=== PATIENT | male | born 1985 | race Hispanic/Latino ===

== ENCOUNTER 2018-09-26 23:08 | Emergency (ER) | payer SELFPAY ==
[2018-09-26] MEDS ORDERED: IBUPROFEN 400 MG TAB ONE (23:54)
--- NOTE | 2018-09-27 01:42 | EDPHYS ---
Physician Documentation [facility] Name: Ab Andrew Age: 33 yrs Sex: Male : 1985 Arrival Date: 09/26/2018 Time: 23:24 Bed 12 Private MD: ED Physician Javy Alvarado HPI: 09/27 01:27 This 33 yrs old Male presents to ER via Ambulatory with complaints of Fever, jmm Cough. 01:27 The patient reports fever. Onset: The symptoms/episode began/occurred gradually, 1 jmm day(s) ago. Modifying factors: there are no obvious modifying factors. Associated signs and symptoms: Pertinent positives: cough, sinus congestion. This is a 33 year old male with a history of htn, chronic bronchitis that presents to the ED with complaints of cough, congestion, fever, beginning yesterday. Denies vomiting, denies diarrhea. . Historical: - Allergies: 09/26 23:37 No Known Allergies; aa1 - Home Meds: 23:37 Metoprolol Tartrate Oral [Active]; amlodipine oral [Active]; Albuterol Inhl [Active]; aa1 - PMHx: 23:37 Hypertension; chronic bronchitis; aa1 - PSHx: 23:37 None; aa1 - Immunization history:: Flu vaccine is not up to date. - Social history:: Smoking status: Patient/guardian denies using tobacco. - Ebola Screening: : Patient denies exposure to infectious person Patient denies travel to an Ebola-affected area in the 21 days before illness onset. ROS: 09/27 01:27 Eyes: Negative for injury, pain, redness, and discharge, Cardiovascular: Negative for jmm chest pain, palpitations, and edema. Back: Negative for injury and pain, MS/Extremity: Negative for injury and deformity, Skin: Negative for injury, rash, and discoloration. Constitutional: Positive for body aches, fever. Respiratory: Positive for cough. Abdomen/GI: Negative for nausea and vomiting, diarrhea. All other systems are negative. Exam: 01:27 Constitutional: This is a well developed, well nourished patient who is awake, alert, jmm and in no acute distress. Head/Face: atraumatic. Eyes: EOMI, no conjunctival erythema appreciated ENT: Moist Mucus Membranes Neck: Trachea midline, Supple Chest/axilla: Normal chest wall appearance and motion. Cardiovascular: Regular rate and rhythm. No edema appreciated Respiratory: Normal respirations, no respiratory distress appreciated Abdomen/GI: Non distended, soft Back: Normal ROM Skin: General appearance color normal MS/ Extremity: Moves all extremities, no obvious deformities appreciated, no edema noted to the lower extremities Neuro: Awake and alert, normal gait Psych: Behavior is normal, Mood is normal, Patient is cooperative and pleasant 01:27 ENT: Posterior pharynx: erythema, that is mild. 01:27 Psych: Behavior/mood is pleasant, cooperative. Vital Signs: 09/26 23:37 BP 133 / 89; Pulse 108; Resp 18; Temp 101.0(O); Pulse Ox 96% on R/A; Weight 106.59 kg; aa1 Height 5 ft. 7 in. (170.18 cm); Pain 5/10; 09/27 00:43 BP 102 / 69; Pulse 12; Resp 18; Temp 101.1(O); Pulse Ox 97% on R/A; mt 09/26 23:37 Body Mass Index 36.81 (106.59 kg, 170.18 cm) aa1 MDM: 01:04 Patient medically screened. [facility] 01: Data reviewed: vital signs, nurses notes. Counseling: I had a detailed discussion with [facility] the patient and/or guardian regarding: the historical points, exam findings, and any diagnostic results supporting the discharge/admit diagnosis, lab results, the need for outpatient follow up, to return to the emergency department if symptoms worsen or persist or if there are any questions or concerns that arise at home. ED course: Patient is alert and non toxic in appearance in the ED. Patient is advised to return to the ED if he develops shortness of breath, vomiting, or any other concerning symptoms. Patient understood and agrees with the plan of care. . 09/26 23:39 Order name: Flu; Complete Time: 00:30 aa1 Administered Medications: 09/26 23:43 Drug: Motrin 800 mg Route: PO; aa1 09/27 00:19 Follow up: Response: Temperature is decreased rv Disposition: : Co-signature as Attending Physician, Javy Avlarado MD. Disposition: 09/27/18 01:41 Discharged to Home. Impression: Influenza due to certain identified influenza viruses. - Condition is Stable. - Discharge Instructions: Influenza, Adult. - Prescriptions for Tamiflu 75 mg Oral Capsule - take 1 tablet by ORAL route every 12 hours for 5 days; 10 tablet. - Medication Reconciliation Form, Thank You Letter, Antibiotic Education, Prescription Opioid Use form. - Follow up: Private Physician; When: 2 - 3 days; Reason: Recheck today's complaints, Continuance of care, Re-evaluation by your physician. Signatures: Dispatcher [employer] EDMS Keyla Eaton RN RN aa1 Prasanth Moreno PA PA jmm Starr, Gregory, MD MD gs Vicente, Ronaldo RN rv Corrections: (The following items were deleted from the chart) 01:35 01:27 ED course: Patient is alert and non toxic in appearance in the ED. Patient is [facility] advised to return to the ED if he develops shortness of . [facility] 01:41 01:27 ED course: Patient is alert and non toxic in appearance in the ED. Patient is [facility] advised to return to the ED if he develops shortness of breath, vomiting, or any other concerning symptoms. Patient understood. [facility] 02:20 01:41 09/27/2018 01:41 Discharged to Home. Impression: Influenza due to certain aa1 identified influenza viruses. Condition is Stable. Forms are Medication Reconciliation Form, Thank You Letter, Antibiotic Education, Prescription Opioid Use. Follow up: Private Physician; When: 2 - 3 days; Reason: Recheck today's complaints, Continuance of care, Re-evaluation by your physician. [facility]
--- NOTE | 2018-09-27 01:42 | ER ---
Nurse's Notes [facility] Name: Ab Andrew Age: 33 yrs Sex: Male : 1985 Arrival Date: 09/26/2018 Time: 23:24 Bed 12 Private MD: Diagnosis: Influenza due to certain identified influenza viruses Presentation: 09/26 23:35 Presenting complaint: Patient states: vomiting yesterday and fever \T\ cough today. aa1 Reports no longer vomiting but is hurting all over. States temp at home 103. Transition of care: patient was not received from another setting of care. Onset of symptoms was September 25, 2018. Risk Assessment: Do you want to hurt yourself or someone else?. Initial Sepsis Screen: Does the patient meet any 2 criteria? Temp <36.0*C (96.8*F)) or > 38.3*C (100.9*F). HR > 90 bpm. Does the patient have a suspected source of infection? No. Patient's initial sepsis screen is negative. Care prior to arrival: None. 23:35 Method Of Arrival: Ambulatory aa1 23:35 Acuity: RICARDO 4 aa1 Triage Assessment: 23:37 General: Appears in no apparent distress. comfortable, Behavior is calm, cooperative, aa1 appropriate for age. Historical: - Allergies: 23:37 No Known Allergies; aa1 - Home Meds: 23:37 Metoprolol Tartrate Oral [Active]; amlodipine oral [Active]; Albuterol Inhl [Active]; aa1 - PMHx: 23:37 Hypertension; chronic bronchitis; aa1 - PSHx: 23:37 None; aa1 - Immunization history:: Flu vaccine is not up to date. - Social history:: Smoking status: Patient/guardian denies using tobacco. - Ebola Screening: : Patient denies exposure to infectious person Patient denies travel to an Ebola-affected area in the 21 days before illness onset. Vital Signs: 23:37 BP 133 / 89; Pulse 108; Resp 18; Temp 101.0(O); Pulse Ox 96% on R/A; Weight 106.59 kg; aa1 Height 5 ft. 7 in. (170.18 cm); Pain 5/10; 09/27 00:43 BP 102 / 69; Pulse 12; Resp 18; Temp 101.1(O); Pulse Ox 97% on R/A; mt 09/26 23:37 Body Mass Index 36.81 (106.59 kg, 170.18 cm) aa1 ED Course: 09/26 23:24 Patient arrived in ED. es 23:36 Triage completed. aa1 23:37 Arm band placed on left wrist. aa1 09/27 00:26 Prasanth Moreno PA is PHCP. [facility] 00:26 Javy Alvarado MD is Attending Physician. [facility] 00:30 Keyla Eaton, RN is Primary Nurse. aa1 Administered Medications: 09/26 23:43 Drug: Motrin 800 mg Route: PO; aa1 09/27 00:19 Follow up: Response: Temperature is decreased rv Outcome: 01:41 Discharge ordered by . [facility] 02:20 Patient left the ED. aa1 Signatures: Keyla Eaton, RN RN aa1 Prasanth Moreno PA PA jmm Salyer, Edna es Thompson, Moriah mt Vicente, Ronaldo, RN RN rv
== END 2018-09-27 02:20 | disposition home or self-care (01) ==
LOC: ER 23:08
DX: J10.1 Influenza due to other identified influenza virus with other respiratory manifestations (principal); I10 Essential (primary) hypertension
CPT/HCPCS: 87804; 99283